=== PATIENT | male | born 1970 | race Caucasian/White ===

== ENCOUNTER 2020-10-14 12:06 | Emergency (ER) | payer OTHER, SELFPAY ==
--- NOTE | ~2020-10-14 | XR_ITS ---
XR knee LT min 4V 10/14/2020 12:39 Indication: Left knee pain Procedure: 4 views left knee Comparison: No prior studies for comparison. Findings: Mild osteoarthritis of the left knee. No fracture or traumatic malalignment. No significant joint effusion. No foreign body. Impression: 1: No acute bone or joint abnormality. Reviewed, dictated and finalized at location A. [employer]IC[employer] Impression: 1: No acute bone or joint abnormality.
[2020-10-14 12:16] VITALS: BP 164/93; PULSE 91; RESP 20; TEMP 37.3; O2SAT 97
--- NOTE | 2020-10-14 12:39 | ED.GENADULT ---
HPI - General Adult General Chief complaint: Extremity Injury, Lower Stated complaint: L knee pain Time Seen by Provider: 10/14/20 12:39 Source: patient Mode of arrival: ambulatory Limitations: no limitations History of Present Illness HPI narrative: 49-year-old male patient presents to the [facility] with complaints of left knee pain for several weeks and his increased in the last couple of days. Patient states it hurts with bending the knee and states he does feel some popping when extending the knee. Patient states he has had issues with the knee before and has had to have fluid removed from the knee. Patient denies any specific injury that he is aware of to the left knee. Patient states he has been taking some [id number] Advil for his symptoms. Related Data Allergies Allergy/AdvReac Type Severity Reaction Status Date / Time No Known Allergies Allergy Verified 10/14/20 12:12 Review of Systems Review of Systems: Narrative: CONSTITUTIONAL: Denies fever, chills, or sweats. EYES: Denies visual changes, redness, or discharge. ENT: Denies rhinorrhea, congestion, sore throat, or otalgia. CARDIOVASCULAR: Denies chest pain, palpitations, or edema. RESPIRATORY: Denies cough or dyspnea. GASTROINTESTINAL: Denies abdominal pain, nausea, vomiting, or diarrhea. GENITOURINARY: Denies dysuria or hematuria. SKIN: Denies rash or itching. MUSCULOSKELETAL: Denies back pain, joint pain, or myalgia. Positive left knee pain NEUROLOGIC: Denies headache, numbness, or weakness. PSYCHIATRIC: Denies anxiety or depression. [facility] Past Medical History Medical History Colon cancer screening Dizziness Prostate cancer screening Family History Family History Sibling Hypertension Family history of diabetes mellitus in first degree relative Father Asthma Mother Cerebrovascular accident Family history of diabetes mellitus in first degree relative Diabetes mellitus Hypertension Family history of throat cancer Social History Social History Smoking status: Never smoker Second hand tobacco smoke exposure: No Alcohol intake: never Comments At the time of my signature I agree with nursing past medical history, surgical, social, and family history. There is no relevant family history pertinent to the presenting complaint. Exam Narrative: Exam Narrative: GENERAL: Well-appearing, well-nourished, and in no acute distress. HEAD: Normocephalic, atraumatic. EYES: PERRLA and EOMI. ENT: Nares clear, no rhinorrhea or epistaxis. Mucous membranes moist. NECK: Supple. No lymphadenopathy CHEST: Clear to auscultation. No respiratory distress. HEART: Regular rate and rhythm. No murmur heard. Normal peripheral pulses. ABDOMEN: Soft, nontender, nondistended, normal active bowel sounds. EXTREMITIES: Patient is able to bear weight and ambulate but has increased pain to the left knee. No surface trauma, STS, or obvious effusion. No overlying erythema or warmth. The L knee is without obvious asymmetry or deformity when compared to the R knee. Patient is able to do deep knee bend with symmetry but has increase in pain with this motion, crepitus fel with fully extend knee,normal internal and external rotation. No tenderness to palpation of the patella, possible small effusion noted, no ballottement. tenderness over the infrapatellar tendon. No tenderness over the medial or lateral joint lone ot the medial or lateral tibial plateaus. tenderness over the proximal fibular head. no tenderness, fullness, or mass of the popliteal fossa. No quadriceps tenderness. No laxity of the ACL, PCL, MCL, or LCL. No collateral ligament laxity to valgus or vargus stress. Negative carmina/drawer sign. Negative Gely. Negative Apley compression and/or distraction. Distal motor and neurovascular status intact. SKIN:
== END 2020-10-14 12:58 | disposition home or self-care (01) ==
PROVIDERS: Emergency Provider Nurse Practitioner Family; PCP Family Medicine
DX: M17.12 Unilateral primary osteoarthritis, left knee (principal)
CPT/HCPCS: 73564; 99213; G0463

== ENCOUNTER → 2021-08-03 14:40 | Outpatient (CLI) | payer OTHER, SELFPAY ==
--- NOTE | ~2021-08-03 | XR_ITS ---
EXAMINATION: XR chest 2V 08/03/2021 15:03 INDICATION: Wheezing PROCEDURE: 2 view chest COMPARISON: No prior studies for comparison. FINDINGS: The lungs are clear. The cardiomediastinal silhouette is within normal limits. There are no pleural effusions. There is no pneumothorax suspected. IMPRESSION: 1: NO ACUTE CARDIOPULMONARY DISEASE. Reviewed, dictated and finalized at location A.
== END ==
PROVIDERS: PCP Family Medicine; Visit Provider Nurse Practitioner Family
DX: R06.2 Wheezing (principal)
CPT/HCPCS: 71046

== ENCOUNTER 2022-02-16 14:11 | Observation (INO) | payer OTHER, SELFPAY ==
[2022-02-16] VITALS (11 sets, daily range): BP systolic 120–177; BP diastolic 79–111; PULSE 72–98; RESP 13–22; TEMP 35.8–36.8; O2SAT 94–98; BMI 48.3
--- NOTE | ~2022-02-16 | XR_ITS ---
EXAMINATION: XR chest 2V Exam Date/Time: 02/16/2022 14:30 CDT CLINICAL HISTORY: cp Comparison: 08/03/2021. RESULT: Lines, tubes, and devices: None. Lungs and pleura: Clear. Cardiomediastinal silhouette: Stable cardiomediastinal silhouette. Other: No acute osseous or upper abdominal finding. IMPRESSION: No acute cardiopulmonary process. Reviewed, dictated and finalized at location K.
--- NOTE | 2022-02-16 14:12 | ECG_ITS ---
Measurements Intervals [place] Rate: 88 P: 10 AL: 166 QRS: -40 QRSD: 106 T: 42 QT: 375 QTc: 454 Interpretive Statements SINUS RHYTHM MARKED LEFT AXIS DEVIATION [QRS AXIS < -30] POOR R WAVE PROGRESSION NO PREVIOUS ECG AVAILABLE FOR COMPARISON Electronically Signed On 02-17-2022 6:54:31 CDT by Anca Hayes M.D.
[2022-02-16] MEDS: ASPIRIN 81 MG CHEWABLE TABLET 324 MG PO (14:31)
[2022-02-16] MEDS: NITROGLYCERIN SL 0.4 MG TABLET SUBLINGUAL (14:32)
--- NOTE | 2022-02-16 14:33 | ED.CHESTPAIN ---
HPI - Chest Pain General Chief Complaint: Chest Pain Stated Complaint: chest pains Time Seen by Provider: 02/16/22 14:13 Source: RN notes reviewed History of Present Illness HPI narrative: Patient presents emergency department from home for chest pain. Patient states that chest pain has been ongoing for the past 2 months but is worsened over the past several days this will be intermittent in nature but always seems to be mildly present pain is described as a pressure and does not radiate is associate with some shortness of breath denies any fevers or chills abdominal pain nausea vomiting or any other symptoms. States he has had no previous work-up for the pain states he does have a history of borderline hypertension but is not on any medication Related Data Home Medications Medication Instructions Recorded Confirmed tamsulosin 0.4 mg capsule 0.4 mg PO DAILY cap 08/03/21 08/10/21 Allergies Allergy/AdvReac Type Severity Reaction Status Date / Time No Known Allergies Allergy Verified 02/16/22 14:21 Review of Systems Review of Systems: Gen.: Denies fevers or chills ENT: Denies congestion Respiratory: Ports shortness of breath CV: See HPI GI: Denies abdominal pain nausea, emesis or diarrhea Musculoskeletal: Denies back pain or muscle pain Neuro: Denies numbness, tingling, weakness or focal weakness Skin: Denies rash Except as documented, all other systems reviewed and negative PMF Past Medical History Medical History BMI 40.0-44.9, adult BMI greater than 40 Colon cancer screening Dizziness Morbid (severe) obesity due to excess calories Prostate cancer screening Family History Family History Sibling Hypertension Family history of diabetes mellitus in first degree relative Father Asthma Mother Cerebrovascular accident Family history of diabetes mellitus in first degree relative Diabetes mellitus Hypertension Family history of throat cancer Sibling Hypertension Diabetes mellitus Social History Social History Second hand tobacco smoke exposure: Yes Alcohol intake: current Substance use: never Substance use type: does not use Additional occupation/education comments: sales management Gender identity (if verbalized by the patient): Male Exam Narrative: APPEARANCE: No acute distress, nontoxic, resting in bed EYES: EOMI HEENT: Normocephalic, atraumatic, OMM RESPIRATORY: No respiratory distress Clear to auscultation bilaterally with no rhonchi wheezing or rales. CARDIOVASCULAR: Regular rate and rhythm without murmurs rubs or gallops. ABDOMINAL: Soft, nontender, nondistended, no rebound or guarding MUSCULOSKELETAl: Moves all extremities. No clubbing, cyanosis or edema. NEURO: Awake and alert. Following commands, speech normal, no focal deficits SKIN:: Warm, dry. No rashes lesions or abrasions PSYCHIATRIC: Normal affect/mood, Course Course Emergency Course: Patient states pain is reviewed resolved with nitroglycerin Called and spoke with Dr. Hayes agrees with consult discussed with Discussed with BAKERY HELPER Crystal for Dr. Horton agrees with admission Discussed with patient and family results of workup and diagnosis. Discussed need for admission. Patient and family understand and agree to current treatment plan Vital Signs Vital signs: Vital Signs Temperature 98.2 F 02/16/22 14:15 Pulse Rate 94 02/16/22 14:15 Respiratory Rate 14 02/16/22 14:15 Blood Pressure 168/111 H 02/16/22 14:15 Pulse Oximetry 98 02/16/22 14:15 Temperature 98.2 F 02/16/22 14:15 Pulse Rate 95 02/16/22 14:48 Respiratory Rate 13 02/16/22 14:48 Blood Pressure 120/79 02/16/22 14:48 Pulse Oximetry 98 02/16/22 15:12 MDM - Chest Pain Lab Data Result diagrams: 02/16/22 14:27 02/16/22 14:27
[2022-02-16 14:34] LABS: Basophils Percent Auto 0.5 % (0.2-1.2); Eosinophils Absolute Auto 0.1 K/mm3 (0-0.3); Eosinophils Percent Auto 1.5 % (0-4.4); Hemoglobin 14.7 g/dL (14.0-18.0); Immature Granulocyte Absolute 0.02 K/mm3 (0.00-0.031); Immature Granulocyte Percent A 0.3 % (0-0.5); Lymphocytes Absolute Auto 2.01 K/mm3 (0.9-3.2); Lymphocytes Percent Auto 27.5 % (18.3-44.2); Mean Corpuscular HGB Conc 34.2 g/dl (32-36); Mean Corpuscular Hemoglobin 29.5 pg (26-34); Mean Corpuscular Volume 86.3 fl (80-100); Mean Platelet Volume 9.6 fl (7.4-10.4); Monocytes Absolute Auto 0.5 K/mm3 (0.1-0.6); Monocytes Percent Auto 6.4 % (2.6-8.5); Neutrophils Absolute Auto 4.7 K/mm3 (1.3-6.7); Neutrophils Percent Auto 63.8 % (45.5-73.1); Platelet Count Result 209 k/mm3 (150-375); Red Blood Count 4.98 M/mm3 (4.6-6.20); Red Cell Distribution Width 13.2 % (11.5-14.5); White Blood Count 7.3 K/mm3 (4.5-10.0)
--- NOTE | 2022-02-16 14:34 | PC.NURSE ---
Pt to XRAY via stretcher on tele monitor at this time.
[2022-02-16 14:44] LABS: INR 0.9; Prothrombin Time 12.1 Seconds (11.1-14.7)
[2022-02-16 14:46] LABS: Alanine Aminotransferase 20 U/L (4-50); Albumin Level 4.4 g/dL (3.5-5.1); Alkaline Phosphatase 73 U/L (38-126); Anion Gap 8 mmol/L (8-16); Aspartate Amino Transferase 26 U/L (17-59); Blood Urea Nitrogen 14 mg/dL (9-20); Calcium 8.8 mg/dL (8.4-10.2); Carbon Dioxide 26 mmol/L (22-30); Chloride 103 mmol/L (98-107); Estimated CRCL calculation 168 ml/min; Estimated Glomerular Filt Rate > 60; Glucose 142 mg/dL (65-110); Lipase 67 U/L (23-300); Sodium 137 mmol/L (137-145)
[2022-02-16 14:47] LABS: D Dimer 0.45 ug/mL (<0.48)
[2022-02-16 14:58] LABS: Troponin I < 0.012 ng/mL (0.000-0.034)
--- NOTE | 2022-02-16 16:16 | PM.IMHP ---
H&P: HPI History of Present Illness Date/Time: Patient was placed observation status for expected length of stay less than 23 hours for management, will plan to re-evaluate tomorrow for improvement. 02/16/22 16:16 Chief Complaint: Chest pain Narrative: Mr. Cabrera is a 51-year-old gentleman who presented to the emergency room with complaints of chest discomfort. Patient states that he has a history of diabetes mellitus and takes metformin for this diagnosis. Patient states that he does not check his blood glucose levels at home. Page states that over the last 2 months he has had chest discomfort ?in his heart muscle?. Patient states that over his left breast area he can pinpoint where he is having pain and that at times the pain will go back to his shoulder blade and at times down his left arm. Patient states at random times he will break out in a cold sweat and he cannot associate it with anything. Patient states the pain has been continuous and has eased up at times but never gone away. Patient states the pain feels like someone is pressing down on his chest. Patient denies any associated nausea, vomiting, or shortness of breath. Patient states that over the last few days the pressure has become very intense and that is what made him come to the emergency room. Upon evaluation in emergency room patient was given nitroglycerin and he states that it did ?Ease up? on the pain. Patient states at home he did not try to take anything to improve his chest discomfort. Patient states he had has taken [id number] Tylenol and ibuprofen at times and he did not notice a difference in his chest discomfort. Patient states that nothing makes the chest discomfort worse. As stated above patient does have a history of diabetes mellitus and is on metformin. Patient states he takes his medication without difficulty. Patient denies checking his blood glucose levels on a routine basis. Patient states he has been told he has borderline hypertension. Patient states he does not take anything at home for cholesterol. Patient states he does have a significant family history of coronary artery disease. Patient states his mother had a myocardial infarction with stent in her early 60s and then 2 years later she had a CVA. Review of Systems Review of Systems: A 12 point review of systems was completed patient all pertinent positive and negative per HPI the remainder are unremarkable. [facility] Past Medical History Medical History (Updated 02/16/22 @ 16:22 by Hanny Londono APRN) BMI 40.0-44.9, adult BMI greater than 40 Colon cancer screening Diabetes mellitus Dizziness Morbid (severe) obesity due to excess calories Prostate cancer screening Surgical History Surgical History (Updated 02/16/22 @ 16:20 by Hanny Londono APRN) History of cholecystectomy Family History Family History (Updated 02/16/22 @ 16:20 by Hanny Londono APRN) Sibling Hypertension Family history of diabetes mellitus in first degree relative Father Asthma Mother Cerebrovascular accident, Onset Age: 62 Family history of diabetes mellitus in first degree relative Diabetes mellitus Hypertension Family history of throat cancer Acute myocardial infarction, Onset Age: 60 Sibling Hypertension Diabetes mellitus Social History Social History Second hand tobacco smoke exposure: Yes Alcohol intake: current Substance use: never Substance use type: does not use Additional occupation/education comments: sales management Gender identity (if verbalized by the patient): Male Meds Home Medications and Allergies Home Medications Medication Instructions Recorded Confirmed Type testosterone cypionate 200 mg/mL 200 mg IM .every 2 weeks #10 ml 03/07/21 08/10/21 Rx intramuscular oil syringe with needle, safety 3 mL #50 ea 05/31/21 08/10/21 Rx 21 gauge x 1 1/2 albuterol sulfate 90 mc
--- NOTE | 2022-02-16 16:31 | ADMGEN ---
This patient, Derik Cabrera, was admitted to IMU Room 201-01. Patient/family oriented to hospital policies and general routines including ID bracelet, bed and alarms, visiting hours, pain management, procedures, bathroom and other care routines, personal items, smoking policy, room service/diet, and visiting hours. Information on how to activate the Rapid Response Team has been discussed. Patient/Family are encouraged to report perceived risks to care and to ask questions if they do not understand what they are told or what they should do.
[2022-02-16 17:02] LABS: Glucose Point of Care 127 mg/dl (65-105)
[2022-02-16 17:40] LABS: Troponin I < 0.012 ng/mL (0.000-0.034)
[2022-02-16 19:48] LABS: Glucose Point of Care 219 mg/dl (65-105)
[2022-02-16 20:35] LABS: Troponin I < 0.012 ng/mL (0.000-0.034)
[2022-02-16] MEDS: lisinopriL 10 MG TABLET PO (22:16)
[2022-02-17] VITALS (10 sets, daily range): BP systolic 109–154; BP diastolic 69–101; PULSE 68–93; RESP 15–22; TEMP 35.7–36.4; O2SAT 95–98
[2022-02-17 04:47] LABS: Basophils Percent Auto 0.3 % (0.2-1.2); Eosinophils Absolute Auto 0.1 K/mm3 (0-0.3); Eosinophils Percent Auto 1.7 % (0-4.4); Hematocrit 43.9 % (42.0-52.0); Hemoglobin 14.1 g/dL (14.0-18.0); Immature Granulocyte Absolute 0.02 K/mm3 (0.00-0.031); Immature Granulocyte Percent A 0.3 % (0-0.5); Lymphocytes Absolute Auto 1.72 K/mm3 (0.9-3.2); Lymphocytes Percent Auto 29.5 % (18.3-44.2); Mean Corpuscular HGB Conc 32.1 g/dl (32-36); Mean Corpuscular Volume 90.1 fl (80-100); Mean Platelet Volume 9.8 fl (7.4-10.4); Monocytes Absolute Auto 0.4 K/mm3 (0.1-0.6); Monocytes Percent Auto 7.4 % (2.6-8.5); Neutrophils Absolute Auto 3.6 K/mm3 (1.3-6.7); Neutrophils Percent Auto 60.8 % (45.5-73.1); Platelet Count Result 190 k/mm3 (150-375); Red Blood Count 4.87 M/mm3 (4.6-6.20); Red Cell Distribution Width 13.4 % (11.5-14.5); White Blood Count 5.8 K/mm3 (4.5-10.0)
[2022-02-17 04:59] LABS: Hemoglobin A1C 6.5 % (<5.7)
[2022-02-17 05:00] LABS: Alanine Aminotransferase 17 U/L (4-50); Albumin Level 3.8 g/dL (3.5-5.1); Alkaline Phosphatase 63 U/L (38-126); Anion Gap 7 mmol/L (8-16); Aspartate Amino Transferase 20 U/L (17-59); Bilirubin,Total 1.1 mg/dL (0.2-1.3); Blood Urea Nitrogen 14 mg/dL (9-20); Calcium 8.3 mg/dL (8.4-10.2); Carbon Dioxide 28 mmol/L (22-30); Chloride 102 mmol/L (98-107); Cholesterol 225 mg/dL (0-200); Estimated CRCL calculation 172 ml/min; Estimated Glomerular Filt Rate > 60; Glucose 128 mg/dL (65-110); HDL Direct 30 mg/dL; Potassium 3.8 mmol/L (3.4-5.0); Sodium 137 mmol/L (137-145); Triglycerides 104 mg/dL (<150)
[2022-02-17 05:11] LABS: LDL Cholesterol Direct 146 mg/dL
[2022-02-17 07:48] LABS: Glucose Point of Care 129 mg/dl (65-105)
[2022-02-17] MEDS: lisinopriL 10 MG TABLET PO (08:05)
[2022-02-17] MEDS: ASPIRIN 81 MG ENTERIC TABLET PO (08:05)
[2022-02-17 11:42] LABS: Glucose Point of Care 153 mg/dl (65-105)
--- NOTE | 2022-02-17 12:37 | PM.DS ---
DS: Admitting Diagnosis Discharge Date February 17, 2022 Admitting Diagnosis Chest pain DS: Discharge Diagnosis Discharge Diagnosis (1) Chest pain: Code(s): R07.9 - Chest pain, unspecified Status: Acute Assessment and Plan: Follow-up Cardiology outpatient (2) Diabetes mellitus: Code(s): E11.9 - Type 2 diabetes mellitus without complications Status: Acute Assessment and Plan: Resume home meds, follow up primary care physician (3) Elevated BP without diagnosis of hypertension: Code(s): R03.0 - Elevated blood-pressure reading, without diagnosis of hypertension Status: Acute Assessment and Plan: Lisinopril on discharge DS: Summary Hospital Course Hospital Course: C plan diagnosis Time Spent with Patient Time attestation: Total time spent providing and/or coordinating discharge services: Exam Narrative: Constitutional: Patient is well-nourished in no acute distress. Patient is alert and oriented x3 HEENT: Moist mucous membranes. No scleral icterus. No lymphadenopathy. Neck: No carotid bruits noted no JVD noted Lungs: Lung sounds are clear to auscultation bilaterally. No accessory muscle use. No rhonchi, rales, or wheezes noted. Cardiovascular: Apical pulse is regular rate and rhythm. S1-S2 noted, no S3 or S4 noted. No gallops, murmurs, or rubs noted. Abdomen: Soft, round, and nontender. No palpable masses. Extremities: No edema. Nontender. Skin: No rashes or lesions. Warm and dry. Skin is intact. Neurological: No focal neurological deficits. Cranial nerves II-XII grossly intact. Psychiatric: Cooperative, appropriate mood, and affect DS: Data Data Completed and Pending Labs on day of discharge: Labs from last 24 hours 02/17/22 02/17/22 02/17/22 11:34 07:29 04:15 WBC RBC Hgb Hct MCV MCH MCHC RDW Plt Count MPV Immature Gran % (Auto) Neut % (Auto) Lymph % (Auto) [place] % (Auto) Eos % (Auto) Baso % (Auto) Lymph # (Auto) [place] # (Auto) Eos # (Auto) Baso # (Auto) Abs Immat Gran (auto) Absolute Neuts (auto) Absolute Nucleated RBC Nucleated RBC % PT INR APTT D-Dimer Sodium Potassium Chloride Carbon Dioxide Anion Gap BUN Creatinine Estim Creat Clear Calc Estimated GFR Glucose POC Capillary Glucose 153 H 129 H Hemoglobin A1c 6.5 H Calcium Total Bilirubin AST ALT Alkaline Phosphatase Troponin I Total Protein Albumin Triglycerides Cholesterol LDL Cholesterol Direct HDL Direct Lipase 02/17/22 02/17/22 02/16/22 04:15 04:15 20:08 WBC 5.8 RBC 4.87 Hgb 14.1 Hct 43.9 MCV 90.1 MCH 29.0 MCHC 32.1 RDW 13.4 Plt Count 190 MPV 9.8 Immature Gran % (Auto) 0.3 Neut % (Auto) 60.8 Lymph % (Auto) 29.5 [place] % (Auto) 7.4 Eos % (Auto) 1.7 Baso % (Auto) 0.3 Lymph # (Auto) 1.72 [place] # (Auto) 0.4 Eos # (Auto) 0.1 Baso # (Auto) 0.0 Abs Immat Gran (auto) 0.02 Absolute Neuts (auto) 3.6 Absolute Nucleated RBC 0.0 Nucleated RBC % 0.0 PT INR APTT D-Dimer Sodium 137 Potassium 3.8 Chloride 102 Carbon Dioxide 28 Anion Gap 7 L BUN 14 Creatinine 0.70 Estim Creat Clear Calc 172 Estimated GFR > 60 Glucose 128 H POC Capillary Glucose Hemoglobin A1c Calcium 8.3 L Total Bilirubin 1.1 AST 20 ALT 17 Alkaline Phosphatase 63 Troponin I < 0.012 Total Protein 7.0 Albumin 3.8 Triglycerides 104 Cholesterol 225 H LDL Cholesterol Direct 146 HDL Direct 30 Lipase 02/16/22 02/16/22 02/16/22 19:38 17:14 16:59 WBC RBC Hgb Hct MCV MCH MCHC RDW Plt Count MPV Immature Gran % (Auto) Neut % (Auto) Lymph % (Auto) [place] % (Auto) Eos % (Auto) Baso % (Auto) Lymph # (Auto)
--- NOTE | 2022-02-17 12:51 | PM.CNCAR ---
Assessment and Plan Additional Plan Atypical chest pain, EKG with no specific ST-T wave changes, Negative enzymes, Plan stress test in AM, ASA, stain and metoprolol 25 mg BID. Patient has social situation and has to leave for family issues and decided to do stress test as outpatient. Patient understands risk and need to come back for recurrent pain. History of Present Illness History of Present Illness Consult date/time: 02/17/22 12:51 Consult reason: chest pain Reason For Visit: Chest Pain Narrative: Patient presented with episode of chest pain yesterday, discomfort, pressure like, non radiating, no precipitating or relieving factors. He had episodes of discomfort for several times for last week. He is under mental stress and anxiety recently. Review of Systems Review of Systems: All systems reviewed & are unremarkable except as noted in HPI and below PMFSH Past Medical History Medical History (Updated 02/16/22 @ 16:22 by Hanny Londono APRN) BMI 40.0-44.9, adult BMI greater than 40 Colon cancer screening Diabetes mellitus Dizziness Morbid (severe) obesity due to excess calories Prostate cancer screening Surgical History Surgical History (Updated 02/16/22 @ 16:20 by Hanny Londono APRN) History of cholecystectomy Family History Family History Sibling Hypertension Family history of diabetes mellitus in first degree relative Father Asthma Mother Cerebrovascular accident, Onset Age: 62 Family history of diabetes mellitus in first degree relative Diabetes mellitus Hypertension Family history of throat cancer Acute myocardial infarction, Onset Age: 60 Sibling Hypertension Diabetes mellitus Social History Social History Smoking status: Never smoker Second hand tobacco smoke exposure: Yes Alcohol intake: never Substance use: never Substance use type: does not use Additional occupation/education comments: sales management Gender identity (if verbalized by the patient): Male Spiritual care concerns: No Meds Home Medications and Allergies Home Medications Medication Instructions Recorded Confirmed Type syringe with needle, safety 3 mL #50 ea 05/31/21 02/16/22 Rx 21 gauge x 1 1/2 tamsulosin 0.4 mg capsule 0.4 mg PO DAILY cap 08/03/21 02/16/22 History pantoprazole 40 mg tablet,delayed 40 mg PO QAM #90 tablet 01/11/22 02/16/22 Rx release metformin 500 mg PO BID 02/16/22 02/16/22 History aspirin 81 mg PO QAM #30 tablet 02/17/22 Rx lisinopril 10 mg PO DAILY 30 Days #30 tablet 02/17/22 Rx metoprolol tartrate 25 mg PO Q12HR 30 Days #60 tablet 02/17/22 Rx Allergies Allergy/AdvReac Type Severity Reaction Status Date / Time No Known Allergies Allergy Verified 02/16/22 14:21 Vital Signs Vital Signs - 24 hr 02/16/22 14:15 02/16/22 14:19 02/16/22 14:48 Temperature 36.8 C Pulse Rate 94 93 95 Respiratory Rate 14 13 Blood Pressure 168/111 H 120/79 Pulse Oximetry 98 96 02/16/22 15:12 02/16/22 16:01 02/16/22 16:47 Temperature 35.8 C L Pulse Rate 88 85 Respiratory Rate 18 22 H Blood Pressure 157/97 H 166/98 H Pulse Oximetry 98 97 98 02/16/22 18:00 02/16/22 19:35 02/16/22 20:00 Temperature 36.3 C L Pulse Rate 96 98 98 Respiratory Rate 16 Blood Pressure 177/104 H Pulse Oximetry 94 94 02/16/22 22:00 02/16/22 23:44 02/17/22 00:00 Temperature 36.2 C L Pulse Rate 79 72 73 Respiratory Rate 16 Blood Pressure 149/79 H Pulse Oximetry 95 95 02/17/22 02:00 02/17/22 04:00 02/17/22 06:00 Temperature 36.4 C Pulse Rate 73 73 68 Respiratory Rate 15 Blood Pressure 109/77 Pulse Oximetry 95 02/17/22 07:47 02/17/22 08:00 02/17/22 10:00 Temperature 35.7 C L Pulse Rate 71 72 91 Respiratory Rate 20 Blood Pressure 119/69 Pulse Oximetry 96 98 02/17/22 11:43 02/17/22 12:00 04
== END 2022-02-17 13:00 | disposition home or self-care (01) ==
LOC: ANHED 15:34 → ANHIMU 16:51
PROVIDERS: Nurse Practitioner Adult Health; Admitting Provider Hospitalist; Emergency Provider Emergency Medicine; PCP Family Medicine; Visit Provider Chiropractor
DX: R07.9 Chest pain, unspecified (principal); R06.02 Shortness of breath; R03.0 Elevated blood-pressure reading, without diagnosis of hypertension; E11.9 Type 2 diabetes mellitus without complications; E66.01 Morbid (severe) obesity due to excess calories; Z68.42 Body mass index [BMI] 45.0-49.9, adult; Z79.51 Long term (current) use of inhaled steroids; Z79.84 Long term (current) use of oral hypoglycemic drugs
CPT/HCPCS: 36415; 71046; 80053; 80061; 82948; 83036; 83690; 84484; 85025; 85380; 85610; 85730; 93005; 99285; A9270; G0378

== ENCOUNTER 2022-07-22 20:44 | Emergency (ER) | payer OTHER, SELFPAY ==
--- NOTE | ~2022-07-22 | XR_ITS ---
EXAM: XR hip LT min 2V DATE: 07/22/2022 22:05 HISTORY: pain radiating down Lt leg, onset last P.M., no injury . COMPARISON: None available. FINDINGS: Normal mineralization. No fracture or dislocation. No lytic or blastic lesion. Mild left h ip superior joint space narrowing. Mild trochanteric and pelvic enthesopathy. No erosion or periostea l change. Soft tissues within normal limits. IMPRESSION: No acute osseous finding the left hip. Reviewed, dictated and finalized at location K.
--- NOTE | ~2022-07-22 | CT_ITS ---
EXAMINATION: CT pelvis wo con DATE: 07/23/2022 01:34 INDICATION: Left hip pain. Unable to bear weight. TECHNIQUE: High resolution computed tomography (CT) of the pelvis was performed without intravenous c ontrast. Additional sagittal and coronal reconstructions were performed. Automated exposure control a nd iterative reconstruction technique were employed. The dose-length product was 967.96 mGy-cm. COMPARISON: Left hip radiographs dated 07/22/2022 FINDINGS: Bone alignment is normal. No fracture or suspected avascular necrosis. Mild bilateral hip osteoarthri tis with marginal osteophytes along the bilateral acetabular rims. No hip joint effusions or other ab normal fluid collections. Additional mild osteoarthritis at the bilateral sacroiliac joints. Small bi lateral fat-containing inguinal hernias. Visualized bowels including the appendix are normal. Bladder is normal. No free fluid in the pelvis. No pathologically enlarged pelvic or inguinal lymphadenopath y. IMPRESSION: 1. Mild bilateral hip and sacroiliac osteoarthritis. No acute osseous abnormalities. Reviewed, dictated and finalized at location A. IMPRESSION: 1. Mild bilateral hip and sacroiliac osteoarthritis. No acute osseous abnormali ties.
[2022-07-22 21:01] VITALS: BP 132/98; PULSE 78; RESP 16; TEMP 36.2; O2SAT 97
[2022-07-23] MEDS: ACETAMINOPHEN 500 MG TABLET 1000 MG PO (01:07)
[2022-07-23] MEDS: IBUPROFEN 400 MG TABLET 800 MG PO (01:08)
--- NOTE | 2022-07-23 02:06 | ED.GENADULT ---
HPI - General Adult General Chief complaint: Extremity Problem,Nontraumatic Stated complaint: Left hip pain Time Seen by Provider: 07/23/22 00:52 History of Present Illness HPI narrative: This is a 51-year-old male presenting to ED with left hip pain. Patient says he was watching TV last night when he started develop pain in the left lateral hip. It radiates down the outside of his leg. It is constant. He has never experienced pain like this before. It is worse with movement. There are no alleviating factors. He denies any fever, chills, trauma, overlying skin changes, lower extremity edema or history of blood clots. Patient has erythematous rash over his thighs bilaterally. It is tender for several weeks. It is itchy. He has seen a motor checker for management. Related Data Home Medications Medication Instructions Recorded Confirmed tadalafil 20 mg tablet (Cialis) 20 mg PO DAILY PRN 05/27/22 05/27/22 tamsulosin 0.4 mg capsule See Rx Instructions .Route .COMPLEX 05/27/22 05/27/22 Allergies Allergy/AdvReac Type Severity Reaction Status Date / Time No Known Allergies Allergy Verified 07/22/22 23:42 Review of Systems Review of Systems: CONSTITUTIONAL: Denies night sweats. EYES: No eye pain ENT: Denies rhinorrhea CARDIOVASCULAR: Denies palpitations RESPIRATORY: Denies hemoptysis GASTROINTESTINAL: Denies hematemesis GENITOURINARY: Denies hematuria. SKIN: Denies rash MUSCULOSKELETAL: Denies myalgia. NEUROLOGIC: Denies weakness. PSYCHIATRIC: Denies delusions [facility] Past Medical History Medical History BMI 40.0-44.9, adult BMI greater than 40 Colon cancer screening Diabetes mellitus Dizziness Eczema Essential hypertension Health problem in family Morbid (severe) obesity due to excess calories Prostate cancer screening Tinea cruris Surgical History Surgical History History of cholecystectomy Family History Family History Sibling Hypertension Family history of diabetes mellitus in first degree relative Father Asthma Mother Cerebrovascular accident, Onset Age: 62 Family history of diabetes mellitus in first degree relative Diabetes mellitus Hypertension Family history of throat cancer Acute myocardial infarction, Onset Age: 60 Sibling Hypertension Diabetes mellitus Social History Social History Smoking status: Never smoker Second hand tobacco smoke exposure: Yes Alcohol intake: current Substance use: never Substance use type: does not use Additional occupation/education comments: sales management Gender identity (if verbalized by the patient): Male Spiritual care concerns: No Exam Narrative: APPEARANCE: No apparent distress. Head atraumatic. EYES: PERRLA/EOMI, NOSE: Normal no drainage NECK: Supple, Trachea midline RESPIRATORY: CTAB, No increased work of breathing. CARDIOVASCULAR: S1S2 appreciated ABDOMINAL: Soft, nontender, nondistended, MUSCULOSKELETAl: focal exam of the left lower extremity revealed pain on ranging of the left hip. There is no pain in the knee or the ankle. There is no ecchymosis or swelling over the hip joint. The joint is not warm to the touch.There is a itchy rash over the patient's anterior thighs as described below. Patient is able to stand and bear weight but has pain with movement. There is no tenderness to palpation down the NEURO: Alert. Moving 4/4 extremities SKIN:: Patient has an erythematous rash over the anterior thighs bilaterally. Does not follow dermatomal distribution. It is not warm to the touch. PSYCHIATRIC: Normal affect Course Vital Signs Vital signs: Vital Signs Temperature 97.2 F L 07/22/22 21:01 Pulse Rate 78 07/22/22 21:01 Respiratory Rate 16 07/22/22 21:01 Blood Pressure
[2022-07-23] MEDS: methocarbamoL 750 MG TABLET 1500 MG PO (02:40)
[2022-07-23] MEDS: oxyCODONE HCL (*CRX) 5 MG TAB IR PO (02:40)
--- NOTE | 2022-07-23 03:10 | PC.NURSE ---
Report received from WISAM Onofre. Awaiting disposition.
== END 2022-07-23 03:52 | disposition home or self-care (01) ==
PROVIDERS: Emergency Provider Emergency Medicine; PCP Family Medicine
DX: M25.552 Pain in left hip (principal); B35.4 Tinea corporis; E11.9 Type 2 diabetes mellitus without complications; I10 Essential (primary) hypertension
CPT/HCPCS: 72192; 73502; 99284; A9270

== ENCOUNTER 2023-09-16 08:07 | Outpatient (CLI) | payer OTHER, SELFPAY ==
[2023-09-16 09:07] LABS: Basophils Percent Auto 0.6 % (0.2-1.2); Eosinophils Absolute Auto 0.1 K/mm3 (0-0.3); Eosinophils Percent Auto 1.2 % (0-4.4); Hematocrit 45.3 % (42.0-52.0); Hemoglobin 14.9 g/dL (14.0-18.0); Immature Granulocyte Absolute 0.02 K/mm3 (0.00-0.031); Immature Granulocyte Percent A 0.4 % (0-0.5); Lymphocytes Absolute Auto 1.62 K/mm3 (0.9-3.2); Lymphocytes Percent Auto 32.5 % (18.3-44.2); Mean Corpuscular HGB Conc 32.9 g/dl (32-36); Mean Corpuscular Hemoglobin 30.2 pg (26-34); Mean Corpuscular Volume 91.7 fl (80-100); Mean Platelet Volume 9.5 fl (7.4-10.4); Monocytes Absolute Auto 0.4 K/mm3 (0.1-0.6); Monocytes Percent Auto 7.6 % (2.6-8.5); Neutrophils Absolute Auto 2.9 K/mm3 (1.3-6.7); Neutrophils Percent Auto 57.7 % (45.5-73.1); Platelet Count Result 181 k/mm3 (150-375); Red Blood Count 4.94 M/mm3 (4.6-6.20)
[2023-09-16 10:15] LABS: Alanine Aminotransferase 22 U/L (6-50); Albumin Level 4.4 g/dL (3.5-5.1); Alkaline Phosphatase 62 U/L (38-126); Anion Gap 7 mmol/L (8-16); Aspartate Amino Transferase 25 U/L (17-59); Bilirubin,Total 1.1 mg/dL (0.2-1.3); Blood Urea Nitrogen 14 mg/dL (9-20); Calcium 9.1 mg/dL (8.4-10.2); Carbon Dioxide 28 mmol/L (22-30); Chloride 103 mmol/L (98-107); Cholesterol 161 mg/dL (0-200); Estimated Glomerular Filt Rate > 60; Glucose 111 mg/dL (65-110); HDL Direct 35 mg/dL; Potassium 4.2 mmol/L (3.4-5.0); Sodium 138 mmol/L (137-145); Triglycerides 156 mg/dL (<150)
[2023-09-16 10:26] LABS: LDL Cholesterol Direct 90 mg/dL
[2023-09-16 10:46] LABS: Prostate Specific Antigen 0.2 ng/mL (< OR = 4.0)
[2023-09-16 11:13] LABS: Hemoglobin A1C 6.1 % (<5.7)
[2023-09-16 12:55] LABS: Creatinine Urine 89.1 mg/dL
[2023-09-16 13:06] LABS: MALB Creatinine Ratio < 6.7 mg/g (0-30); Microalbumin Urine Random < 6.0 mg/L (0-16.7)
== END 2023-09-16 08:08 | disposition home or self-care (01) ==
PROVIDERS: PCP Family Medicine; Visit Provider Family Medicine
DX: Z12.5 Encounter for screening for malignant neoplasm of prostate (principal); I10 Essential (primary) hypertension; E11.9 Type 2 diabetes mellitus without complications; R21 Rash and other nonspecific skin eruption; Z13.220 Encounter for screening for lipoid disorders
CPT/HCPCS: 36415; 80048; 80061; 80076; 82043; 83036; 84153; 84443; 85025; 86038; G0103

== ENCOUNTER 2025-02-01 09:18 | Outpatient (CLI) | payer OTHER, SELFPAY ==
--- NOTE | ~2025-02-01 | XR_ITS ---
EXAMINATION: XR barium swallow modified DATE: 02/01/2025 09:48 INDICATION: Other dysphagia. TECHNIQUE: The patient was given barium-containing material of multiple consistencies to swallow by t jesse speech pathologist while I performed fluoroscopy. Fluoroscopy exposure time was 0.9 minutes. The n umber of fluoroscopy images saved to the PACS was 1. Dose-area product was 1.036 Gy-cm^2. FINDINGS: The oral stage of the swallow is normal. There is flash laryngeal penetration, likely within function al/normal limits. The cervical/esophageal stage of the swallow is normal. IMPRESSION: 1. Normal modified barium swallow. 2. Please refer to the speech therapy report for recommendations. Reviewed, dictated and finalized at location A.
--- NOTE | 2025-02-01 10:13 | REHSTMBS ---
Assessment and note entered by Suyapa Arce, FISH HATCHERY SPECIALIST Modified Barium Swallow Evaluation Feeding Type Recommended Oral Food Consistency Regular, Level 7 Liquid Consistency Thin (0) ST Clinical Summary The above pleasant and cooperative pt was seen for an outpatient modified barium swallow. He was alert, oriented, and able to follow commands. He is currently on a regular diet and reports difficulty in that he occasionally feels that food and, now recently, liquids are getting caught in his esophagus. He also occasionally feels pain which occasionally causes coughing; he had 1 episode where he almost couldn't breathe. Oral mucosa is normal; natural dentition is in good condition; Informal oral peripheral exam revealed lingual and labial structures to be normal. Vocal quality is clear. The patient was visualized in a lateral view and presented with 5cc of thin liquid barium via spoon , pudding consistency barium via a spoon, cracker coated with barium pudding via spoon, and uncontrolled thin liquid barium. This was presented via a cup & straw. Oral preparatory and oral phase symptoms: none. Pharyngeal phase symptoms: within functional limits; trace and very shallow laryngeal penetration occurred but was easily and readily cleared with no aspiration risk . Esophageal stage symptoms: none. No aspiration occurred. Impressions: Normal/functional swallow ability; however, it may be that pt's s/s are a side effect of his Mounjaro medication as it may cause indigestion, upset stomach, & dry mouth.
--- OUTSIDE RECORDS SUMMARY | 2025-02-01 10:19 | XMS_ITS | Clinical Summary ---
Author Organization [facility] Address [address] [place] [address] Care Team Providers Care Shipping Processor Name Role Phone Catracho Palma MD Primary Care Provider + [phone] Allergies No known active allergies Medications pantoprazole DR (PROTONIX) 40 mg EC tablet Take 1 tablet (40 mg total) by mouth 2 (two) times a day. 180 tablet 3 11/26/19 19 Active tamsulosin (FLOMAX) 0.4 mg extended release capsuleIndication s:benign prostatic hyperplasia with lower urinary tract sx Take 1 capsule (0.4 mg total) by mouth pot fisher before breakfast 05/15/20 20 Active lisinopriL (PRINIVIL,ZESTRIL ) 10 mg tablet Take 1 tablet (10 mg total) by mouth daily 03/03/20 22 Active metFORMIN XR (GLUCOPHAGE XR) 500 mg 24 hr tablet Take 1 tablet (500 mg total) by mouth daily 02/27/20 22 Active metoprolol tartrate (LOPRESSOR) 25 mg immediate release tablet Take 1 tablet (25 mg total) by mouth 2 (two) times a day 03/03/20 22 Active isosorbide mononitrate ER (IMDUR) 30 mg 24 hr tabletIndications :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 Take 1 tablet (30 mg total) by mouth daily 90 tablet 3 04/01/20 24 Active rosuvastatin (CRESTOR) 40 mg tabletIndications :Dyslipidemia Take 1 tablet by mouth once daily 90 tablet 1 08/12/20 24 Active clopidogreL (PLAVIX) 75 mg tablet Take 1 tablet by mouth once daily 90 tablet 11/08/20 24 Active Jardiance 10 mg tablet Take 1 tablet by mouth once daily 90 tablet 11/26/19 25 Active Mounjaro 12.5 mg/0.5 mL pen injector injection Inject 0.5 mL (12.5 mg total) under the skin 12/27/19 25 Active ondansetron ODT (ZOFRAN-ODT) 4 mg disintegrating tabletIndications :Nausea Take 1 tablet (4 mg total) by mouth every 8 (eight) hours as needed for nausea or vomiting 10 tablet 12/30/19 25 Active bempedoic acid-ezetimibe 180-10 mg tablet Take 1 tablet/capsu le by mouth daily 30 tablet 11 01/05/20 25 Active ranolazine ER (RANEXA) 1,000 mg 12 hr tabletIndications :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 TAKE ONE TABLET BY MOUTH TWICE A DAY 60 tablet 11 01/18/20 25 Active ranolazine ER (RANEXA) 1,000 mg 12 hr tabletIndications :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 Take 1 tablet (1,000 mg total) by mouth 2 (two) times a day 180 tablet 12/22/19 24 025 Discontinued Active Problems Problem Noted Date Diagnosed Date History of percutaneous coronary intervention Overview (06/12/2022): Added automatically from request for surgery [id number] Coronary artery disease of n ative artery of prairie band heart with stable angina pectoris 06/12/2022 Overview (06/12/2022): Added automatically from request for surgery [id number] Abnormal stress test 03/11/2022 Overview (03/11/2022): Added automatically from request for surgery [id number] Chest pain 03/11/2022 Overview (03/11/2022): Added automatically from request for surgery [id number] Mixed sleep apnea 10/24/2021 Refractive error 07/11/2020 Routine eye exam 07/11/2020 Snoring 03/09/2019 Abscess of right leg 03/26/2018 Cellulitis of right lower extremity 03/26/2018 GERD (gastroesophageal reflux disease) 8 Schatzki's ring 03/26/2018 Obesity due to excess calories 03/26/2018 Lentigines 03/17/2018 Multiple benign melanocytic nevi 03/17/2018 Actinic keratosis 03/17/2018 Seborrheic keratoses 03/17/2018 Skin neoplasm 03/17/2018 Dysphagia 03/05/2018 Excessive daytime sleepiness 02/05/2017 Primary osteoarthritis of knees, bilateral 12/23 Morbid obesity due to excess calories 11/27/2016 Overview (05/28/2023): see above Cellulitis and abscess of right leg Resolved Problems Problem Noted Date Diagnosed Date Resolved Date BMI 40.0-44.9, adult 11/27/2016 024 Overview (05/28/2023): slight improvement Encounters Date Type Department Care Team Description 01/26/2025 Telephone [facility] G[facility]ology at [facility] [address], [place] [phone] Daquan Figueroa MD Scheduling Appointments 01/21/2025 Telephone [facility] G[facility]ology at [facility] [address], [place] [address] Daquan Figueroa MD office visit 01/10/2025 Documentation [facility] Medical [facility] Cardiology [address] [place] [phone] Corine Newton MA 01/05/2025 8:30 AM GRAPHITE MILL OPERATOR Office Visit [facility] Cardiology [address] [place] [phone] Nahum Haider MD 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) 12/30/2024 12:00 PM GRAPHITE MILL OPERATOR Office Visit [facility] at [address] [phone] Mary Kay Desai NP Diarrhea, unspecified type (Primary Dx); Nausea from Last 3 Months Surgical History Surgery Date Site/Laterality Comments CHOLECYSTECTOMY 11/10/2011 - 11/09/2012 INCISION AND DRAINAGE TIBIA 11/10/2017 - 11/09/2018 COLONOSCOPY 2020 Medical History Medical History Date Comments GERD (gastroesophageal reflux disease) Sleep apnea Hypertension Diabetes mellitus (HCC) Hypercholesteremia Type 2 diabetes mellitus (HCC) Morbid obesity (HCC) Coronary artery disease Family History Medical History Relation Name Comments Diabetes Brother Sister Gout Brother Sister Hypertension Brother Sister Arthritis Father Ignacio Diabetes Father Ignacio Hypertension Father Ignacio Arthritis Mother Mother Cancer Mother Mother Clotting disorder Mother Mother Diabetes Mother Mother Heart disease Mother Mother Hypertension Mother Mother Kyphosis Mother Mother Stroke Mother Mother Diabetes Sister Hypertension Sister Relation Name Status Comments Brother Sister Father Ignacio Mother Mother Sister Social History Tobacco Use Types Packs/Day Years Used Date Smoking Tobacco: Never Smokeless Tobacco: Never Tobacco Cessation:Counseling Given: Not Answered Alcohol Use Standard Drinks/Week Comments Yes 2 (1 standard drink = 0.6 oz pur e alcohol) socially AUDIT-C Answer Date Recorded Q1: How often do you have a drink containing alc ohol? 2-3 times a week 03/11/2024 Q2: How many drinks containi ng alcohol do you have on a typical day when you are drinking? 1 or 2 03/11/2024 Q3: How often do you have si x or more drinks on one occasion? Never 03/11/2024 Personal Safety Answer Date Recorded Have you ever been in or are you currently in a harmful physical or emotional relationship or is someone making you feel afraid or unsafe? Denies 04/25/2023 Sex and Gender Information Value Date Recorded Sex Assigned at Not on file Legal Sex Male 12:26 PM CDT Gender Identity Not on file Sexual Orientation Not on file Obstetrics History Last Filed Vital Signs Vital Sign Reading Time Taken Comments Blood Pressure 106/64 01/05/2025 8:29 AM GRAPHITE MILL OPERATOR Pulse 80 01/05/2025 8:29 AM GRAPHITE MILL OPERATOR Temperature 36.7 C (98.1 F) 12/30/2024 12:09 PM GRAPHITE MILL OPERATOR Respiratory Rate 18 12/30/2024 12:09 PM GRAPHITE MILL OPERATOR Oxygen Saturation 98% 01/05/2025 8:29 AM GRAPHITE MILL OPERATOR Inhaled Oxygen Concentration - - Weight 136.1 kg (300 lb) 01/05/2025 8:29 AM GRAPHITE MILL OPERATOR Height 185.4 cm (6' 1 ) 01/05/2025 8:29 AM GRAPHITE MILL OPERATOR Body Mass Index 39.58 01/05/2025 8:29 AM GRAPHITE MILL OPERATOR Plan of Treatment Health Maintenance Due Date Last Done Comments Albumin Creatinine Ratio, Urine 1970 Depression Screening 1970 Hepatitis C Screening 1970 Dilated Eye Exam 1970 Foot Exam 1969 DTaP/Tdap/Td Vaccine (1 - Tdap) 1980 Hepatitis B Screening 1987 Regular Well Visit/Exam 18-64 1987 Pneumococcal vaccine <65 (1 of 2 - PCV) 1988 Zoster Vaccine (1 of 2) 2019 Prostate Cancer Screening-PSA 03/10/2022 03/10/2020 Covid-19 Vaccine (3 - 2023-2 5 season) 2024 01/28/2021, 01/07/2021 Influenza Vaccine (#1) 2024 08/25/2020, 2018 Hemoglobin A1C 10/26/2024 04/26/2024 eGFR 04/26/2025 04/26/2024, 07/12, 04/01/2022, Additional history exists Lipid Panel 01/05/2026 01/05/2025, 04/10, 12/31/2023, Additional history exists Colon Cancer Screening-Colonoscopy 07/07/2030 07/07/2020 Colon Cancer Screening-CT Colonography Discontinued 07/07/2020 Colon Cancer Screening-DNA Stool Discontinued 07/07/20 Colon Cancer Screening-FIT Discontinued 07/07/2020 Colon Cancer Screening-Sigmoidoscopy Discontinued 07/07/2020 Procedures Procedure Name Priority Date/Time Associated Diagnosis Comments POCT LIPID PANEL Routine 01/05/2025 8:24 AM GRAPHITE MILL OPERATOR 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 POC INFLUENZA A/B, COVID-19 ANTIGEN Routine 12/30/2024 12:41 PM GRAPHITE MILL OPERATOR Diarrhea, unspecified type EGFR Routine 04/26/2024 2:34 PM CDT Morbid obesity with BMI of 45.0-49.9, adult (HCC) 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 Gastroesophageal reflux disease, unspecified whether esophagitis present Primary hypertension Obstructive sleep apnea Hyperlipidemia, unspecified hyperlipidemia type HEMOGLOBIN A1C Routine 04/26/2024 2:34 PM CDT Morbid obesity with BMI of 45.0-49.9, adult (HCC) 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 Gastroesophageal reflux disease, unspecified whether esophagitis present Primary hypertension Obstructive sleep apnea Hyperlipidemia, unspecified hyperlipidemia type COLONOSCOPY 07/07/2020 10:10 AM CDT PSA SCREEN Routine 03/10/2020 7:59 AM CDT from Last 3 Months or Most Recently Relevant to Health Maintenance Results * POCT lipid panel (01/05/2025 8:24 AM GRAPHITE MILL OPERATOR) HDL, POC 33 mg/dL Triglycerides, POC 115 mg/dL LDL Cholesterol POC 80 mg/dL Chol/HDL Ratio, POC 2.4 Non-HDL Cholesterol, POC 103 mg/dL Cholesterol Total, POC 136 mg/dL Capillary blood 01/05/2025 8 :24 AM GRAPHITE MILL OPERATOR Nahum Haider MD POINT OF CARE TEST ORDERABLES Fi nal Result * POC Influenza A/B, COVID-19 antigen (12/30/2024 12:41 PM GRAPHITE MILL OPERATOR) Influenza A Ag, POC Negative Negative [facility] Influenza B Ag, POC Negative Negative [facility] COVID-19 Ag POC Presumptive Negative Presumptive Negative, Invalid [facility] Nasal 12/30/2024 12:4 1 PM GRAPHITE MILL OPERATOR Mary Kay Desai NP POINT OF CARE TEST ORDERABLES Final Result [facility] [address] [place] [address], [facility] * eGFR (04/26/2024 2:34 PM CDT) eGFR >90 >=60 mL/min/1. 73 m2 Comment: Interpretive Data Reference Interval Normal >/= 90 mL/min/1.73m2 Mildly decreased* 60 - 89 mL/min/1.73m2 Mildly to moderately decreased 45 - 59 mL/min/1.73m2 Moderately to severely decreased 30 - 44 mL/min/1.73m2 Severely decreased 15 - 29 mL/min/1.73m2 Kidney Failure < 15 mL/min/1.73m2 *Relative to young adult level Estimated glomerular filtration rate is determined by the 2020 CKD-EPI equation recommended by the National Kidney Foundation (A Unifying Approach to GFR Estimation: Recommendations of the NKF-ASK Task Force on Reassessing the Inclusion of Race in Diagnosing Kidney Disease, JASN 2020). The CKD-EPI equation should not be used for patients with unstable renal function and has not been validated in children and those over 70. Current interpretive data was last reviewed 2021. Blood 04/26/2024 2:34 PM CDT 04/26/2024 8:56 PM CDT Sung Doe NP LAB BLOOD ORDERABLES Final Result [facility] [address] Department [place] [address] * Hemoglobin A1c (04/26/2024 2:34 PM CDT) Hgb A1C 5.6 4.0 - 5.6 % Estimated Average Glucose 114 mg/dL [facility] Comment: The ADA recommends reporting an estimated Average Glucose (eAG) with all Hemoglobin A1c results using the equation derived from a study of 507 normal and diabetic adults. Minority populations were underrepresented and children were not included. (Diabetes Care 31:9351-4745, 2008). The eAG is not equivalent to a fasting glucose. Blood 04/26/2024 2:34 PM CDT 04/26/2024 8:55 PM CDT us Sung Doe OPERATIONAL RISK CONSULTANT LAB BLOOD ORDERABLES Final Result [facility] [address] [facility] Department [place] [address] * COLONOSCOPY (07/07/2020 10:10 AM CDT) Anatomical Region Laterality Modality Other Narrative Procedure Note Shannen Terrazas MD - 07/07/2020 10:10 AM CDT ENDOSCOPY LAB Patient Name: Derik Cabrera Procedure Date: 07/07/2020 10:10 AM Date of : 1970 Admit Type: Outpatient Age: 49 Gender: Male Attending MD: Shannen Terrazas M.D. Room: [facility] ENDOSCOPY ROOM 03 Note Status: Finalized Procedure: Colonoscopy Indications: Screening for colorectal malignant neoplasm, This isthe patient's first colonoscopy Providers: Shannen Terrazas M.D. Referring MD: Catracho Palma M.D. Medicines: Monitored Anesthesia Care Complications: No immediate complications. Estimated Blood Loss: Estimated blood loss: none. Procedure: Pre-Anesthesia Assessment: - Immediately prior to administration of medications,the patient was re-assessed for adequacy to receivesedatives. The benefits, risks and alternatives of the procedureand sedation were discussed and informed consent wasobtained. All questions were answered. Please refer to the signed informed consent document in the medical record. Thescope was passed under direct vision. The [id number] introduced through the anus and advanced to the cecum, identified by appendiceal orifice and ileocecal valve.The colonoscopy was performed without difficulty. Thepatient tolerated the procedure well. The quality of the bowel preparation was evaluated using the BBPS (Clinton Bowel Preparation Scale) with scores of: Right Colon = 3, Transverse Colon = 3 and Left Colon = 3 (entire mucosa seen well with no residual staining, small fragments of stool or opaque liquid). The total BBPS score equals 9. Bowel prep was administered using a split dose. Findings: A 8 mm polyp was found in the descending colon. The polyp was semi-sessile. The polyp was removed with a cold snare. Resection and retrieval were complete. Non-bleeding internal hemorrhoids were found during retroflexion. The hemorrhoids were medium-sized. Impression: - One 8 mm polyp in the descending colon, removed witha cold snare. Resected and retrieved. - Non-bleeding internal hemorrhoids. Recommendation: - Repeat colonoscopy in 5 years for surveillance basedon pathology results. - A polyp or polyps were removed during yourcolonoscopy today. After the pathology result of the polyp(s) is reviewed, the doctor who performed your colonoscopywill recommend follow-up colonoscopy to you based on current guidelines by gastroenterology societies: - If only small hyperplastic polyps from the rectum or sigmoid were removed, repeat the colonoscopy in 10years. - If 1 or 2 polyps less than 1 cm in size areadenomas, repeat the colonoscopy in 5 years. - If 3 or more polyps are adenomas, repeat thecolonoscopy in 3 years. - If there are 10 or more adenomas, repeat thecolonoscopy in 1 year. - If any polyp is 10 mm or greater in size, has villous histology or high grade dysplasia, repeat thecolonoscopy in 3 years. - If a polyp greater than 2 cm was removed with a piecemeal technique, repeat the colonoscopy in 6 monthsto be certain that there is no residual polyp. - Sessile serrated polyps are treated like adenomas for surveillance purposes. - . Attending Participation: I personally performed the entire procedure. Electronically signed by Shannen Trerazas MD Shannen Terrazas M.D. 07/07/2020 10:43:39 AM Number of Addenda: 0 Note Initiated On: 07/07/2020 10:10 AM us Shannen Terrazas MD ENDOSCOPY PROCEDURES Final Res ult * PSA screen (03/10/2020 7:59 AM CDT) PSA-Total 0.26 <=3.90 ng/mL [facility] Comment: Interpretive Data AGE SEX REFERENCE INTERVAL 0 minutes-150 years Female None 0 minutes-49 years Male None 50-59 years Male 0-3.90 60-69 years Male 0-5.40 70-79 years Male 0-6.20 80-150 years Male 0-6.20 Current interpretive data last revised 2018. Blood specimen (specimen) 03/10/2020 7:59 AM CDT 03/10/2020 8:12 AM CDT Catrachodeisy Palma MD LAB BLOOD ORDERABLES Final R esult [facility] Department [place] [address] from Last 3 Months or Most Recently Relevant to Health Maintenance Insurance [employer] Address: [address] [place] [address] [employer] Address: [facility] [address] [place] [address] [employer] Address: [id number] [place] [address] Advance Directives For more information, please contact: [phone] * Full Code (Latest Code Status on File) Date Activated Date Inactivated Comments 07/07/2020 9:21 AM 07/07/2020 3:33 PM * Full Code Date Activated Date Inactivated Comments 04/02/2018 5:58 PM 07/07/2020 9:19 AM * Full Code Date Activated Date Inactivated Comments 03/26/2018 6:20 PM 03/30/2018 6:26 PM Care Teams Shipping Processor Relationship Specialty Start Date End Date Catracho Palma MD PCP - General Family Medicine 04/15/18
--- OUTSIDE RECORDS SUMMARY | 2025-02-01 10:19 | XMS_ITS | Referral Summary ---
Author Organization [facility] Address [address] [place] [address] Care Team Providers Care Biology Adjunct Instructor Name Role Phone Catracho Palma MD Primary Care Provider [phone] Encounters Date Type Department Care Team Description 01/26/2025 Telephone [facility] G[facility]ology at [facility] [address] [place] [phone] Daquan Figueroa MD Scheduling Appointments 01/21/2025 Telephone [facility] G[facility]ology at [facility] [address] [place] [phone] Daquan Figueroa MD office visit 01/10/2025 Documentation [facility] Cardiology [address] [place] [address] [address] [place] [phone] Corine Newton MA 01/05/2025 8:30 AM FOOD PRODUCTION MANAGER Office Visit [facility] Cardiology [address] [facility] [address] [place] [phone] Nahum Haider MD Coronary artery disease of [place] artery of [place] heart with stable angina pectoris (Primary Dx); Hypertension associated with diabetes (HCC); SANDI on CPAP; Severe obesity (BMI 35.0-35.9 with comorbidity) (HCC) 12/30/2024 12:00 PM FOOD PRODUCTION MANAGER Office Visit [facility] [address] [place] [address] Mary Kay Desai NP Diarrhea, unspecified type (Primary Dx); Nausea from Last 3 Months Allergies No known active allergies Medications pantoprazole DR (PROTONIX) 40 mg EC tablet Take 1 tablet (40 mg total) by mouth 2 (two) times a day. 180 tablet 3 11/26/19 19 Active tamsulosin (FLOMAX) 0.4 mg extended release capsuleIndication s:benign prostatic hyperplasia with lower urinary tract sx Take 1 capsule (0.4 mg total) by mouth line repairer before breakfast 05/15/20 20 Active lisinopriL (PRINIVIL,ZESTRIL [...] 24 hr tabletIndications :Coronary artery disease of [place] artery of [place] heart with stable angina pectoris Take 1 [...] 12 hr tabletIndications :Coronary artery disease of [place] artery of [place] heart with stable angina pectoris TAKE ONE TABLET BY MOUTH TWICE A DAY 60 tablet 11 01/18/20 25 Active ranolazine ER (RANEXA) 1,000 mg 12 hr tabletIndications :Coronary artery disease of [place] artery of [place] heart with stable angina pectoris Take 1 tablet (1,000 mg total) by mouth 2 (two) times a day 180 tablet 12/22/19 24 025 Discontinued Active Problems Problem Noted Date Diagnosed Date History of percutaneous coronary intervention Overview (06/12/2022): Added automatically from request for surgery [id number] Coronary artery disease of n ative artery of [place] heart with stable angina pectoris 06/12/2022 Overview (06/12/2022): Added automatically from request for surgery [id number] Abnormal stress test 03/11/2022 Overview (03/11/2022): Added automatically from request for surgery [id number] Chest pain 03/11/2022 Overview (03/11/2022): Added automatically from request for surgery [id number] Mixed sleep apnea 10/24/2021 Refractive error 07/11/2020 [...] adult 11/27/2016 024 Overview (05/28/2023): slight improvement Social History Tobacco Use Types Packs/Day Years [...] on file Sexual Orientation Not on file Last Filed Vital Signs Vital Sign Reading Time Taken Comments Blood Pressure 106/64 01/05/2025 8:29 AM FOOD PRODUCTION MANAGER Pulse 80 01/05/2025 8:29 AM FOOD PRODUCTION MANAGER Temperature 36.7 C (98.1 F) 12/30/2024 12:09 PM FOOD PRODUCTION MANAGER Respiratory Rate 18 12/30/2024 12:09 PM FOOD PRODUCTION MANAGER Oxygen Saturation 98% 01/05/2025 8:29 AM FOOD PRODUCTION MANAGER Inhaled Oxygen Concentration - - Weight 136.1 kg (300 lb) 01/05/2025 8:29 AM FOOD PRODUCTION MANAGER Height 185.4 cm (6' 1 ) 01/05/2025 8:29 AM FOOD PRODUCTION MANAGER Body Mass Index 39.58 01/05/2025 8:29 AM FOOD PRODUCTION MANAGER Plan of Treatment Not on file Procedures Procedure Name Priority Date/Time Associated Diagnosis Comments POCT LIPID PANEL Routine 01/05/2025 8:24 AM FOOD PRODUCTION MANAGER Coronary artery disease of [place] artery of [place] heart with stable angina pectoris POC INFLUENZA A/B, COVID-19 ANTIGEN Routine 12/30/2024 12:41 PM FOOD PRODUCTION MANAGER Diarrhea, unspecified type EGFR Routine 04/26/2024 2:34 PM CDT Morbid obesity with BMI of 45.0-49.9, adult (HCC) Coronary artery disease of [place] artery of [place] heart with stable angina pectoris Gastroesophageal reflux disease, unspecified whether esophagitis present Primary hypertension Obstructive sleep apnea Hyperlipidemia, unspecified hyperlipidemia type HEMOGLOBIN A1C Routine 04/26/2024 2:34 PM CDT Morbid obesity with BMI of 45.0-49.9, adult (HCC) Coronary artery disease of [place] artery of [place] heart with stable angina pectoris Gastroesophageal reflux disease, unspecified whether esophagitis present Primary hypertension Obstructive sleep apnea Hyperlipidemia, unspecified hyperlipidemia type COLONOSCOPY 07/07/2020 10:10 AM CDT PSA SCREEN Routine 03/10/2020 7:59 AM CDT from Last 3 Months or Most Recently Relevant to Health Maintenance Results * POCT lipid panel (01/05/2025 8:24 AM FOOD PRODUCTION MANAGER) HDL, POC 33 mg/dL Triglycerides, POC 115 mg/dL LDL Cholesterol POC 80 mg/dL Chol/HDL Ratio, POC 2.4 Non-HDL Cholesterol, POC 103 mg/dL Cholesterol Total, POC 136 mg/dL Capillary blood 01/05/2025 8 :24 AM FOOD PRODUCTION MANAGER Nahum Haider MD POINT OF CARE TEST ORDERABLES Fi nal Result * POC Influenza A/B, COVID-19 antigen (12/30/2024 12:41 PM FOOD PRODUCTION MANAGER) Influenza A Ag, POC Negative Negative [facility] Influenza B Ag, POC Negative Negative [facility] COVID-19 Ag POC Presumptive Negative Presumptive Negative, Invalid [facility] Nasal 12/30/2024 12:4 1 PM FOOD PRODUCTION MANAGER Mary Kay Desai NP POINT OF CARE TEST ORDERABLES Final Result Performing Organization Address City/[facility]/ZIP Co de Phone Number [facility] [address] * eGFR (04/26/2024 2:34 PM CDT) eGFR [...] CDT 04/26/2024 8:56 PM CDT Sung Doe CORRECTIONAL OFFICER SERGEANT LAB BLOOD ORDERABLES Final Result Performing Organization Address City/[facility] Co de Phone Number [facility] [address] [place] [address] * Hemoglobin A1c (04/26/2024 2:34 PM CDT) Hgb A1C 5.6 4.0 - 5.6 % Estimated Average Glucose 114 mg/dL [facility] Comment: The ADA recommends reporting an estimated Average Glucose (eAG) with all Hemoglobin A1c results using the equation derived from a study of 507 normal and diabetic adults. Minority populations were underrepresented and children were not included. (Diabetes Care 31:7860-4323, 2008). The eAG is not equivalent to a fasting glucose. Blood 04/26/2024 2:34 PM CDT 04/26/2024 8:55 PM CDT us Sung Doe CORRECTIONAL OFFICER SERGEANT LAB BLOOD [place] [address] [facility] Department [place] [address] * COLONOSCOPY (07/07/2020 10:10 AM CDT) Anatomical Region Laterality Modality Other Narrative Procedure Note Shannen Terrazas MD - 07/07/2020 10:10 AM CDT ENDOSCOPY LAB Patient Name: Derik Cabrera Procedure Date: 07/07/2020 10:10 AM Date of : 1970 Admit Type: Outpatient Age: 49 Gender: Male Attending MD: Shannen Terrazas M.D. Room: [facility] ENDOSCOPY ROOM 03 Note Status: Finalized Procedure: [...] Thescope was passed under direct vision. The [id number] introduced through the anus and advanced to the cecum, identified by appendiceal orifice and ileocecal valve.The colonoscopy was performed without difficulty. Thepatient tolerated the procedure well. The quality of the bowel preparation was evaluated using the BBPS (Duke Bowel Preparation Scale) with scores of: Right [...] the entire procedure. Electronically signed by Shannen Terrazas MD Shannen Terrazas M.D. 07/07/2020 10:43:39 AM Number of Addenda: 0 Note Initiated On: 07/07/2020 10:10 AM us Shannen Terrazas MD ENDOSCOPY PROCEDURES Final Res ult * PSA screen (03/10/2020 7:59 AM CDT) PSA-Total 0.26 <=3.90 ng/mL [facility] Comment: Interpretive Data AGE SEX REFERENCE INTERVAL 0 minutes-150 years Female None 0 minutes-49 years Male None 50-59 years Male 0-3.90 60-69 years Male 0-5.40 70-79 years Male 0-6.20 80-150 years Male 0-6.20 Current interpretive data last revised 2018. Blood specimen (specimen) 03/10/2020 7:59 AM CDT 03/10/2020 8:12 AM CDT Catrachodeisy Palma MD LAB BLOOD ORDERABLES Final R esult [facility] [place] [address] from Last 3 Months or Most Recently Relevant to Health Maintenance Insurance [facility] [employer] Advance Directives For more information, please contact: [phone] * Full Code (Latest Code Status on File) Date Activated Date Inactivated Comments 07/07/2020 9:21 AM 07/07/2020 3:33 PM * Full Code Date Activated Date Inactivated Comments 04/02/2018 5:58 PM 07/07/2020 9:19 AM * Full Code Date Activated Date Inactivated Comments 03/26/2018 6:20 PM 03/30/2018 6:26 PM Care Teams Biology Adjunct Instructor Relationship Specialty Start Date End Date Catracho Palma MD PCP - General Family Medicine 04/15/18
== END 2025-02-01 09:19 | disposition home or self-care (01) ==
LOC: ANHIMG 09:21
PROVIDERS: PCP Family Medicine; Visit Provider Nurse Practitioner Family
DX: R13.19 Other dysphagia (principal); K21.9 Gastro-esophageal reflux disease without esophagitis
CPT/HCPCS: 92611

== ENCOUNTER 2025-02-28 08:42 | Outpatient (CLI) | payer OTHER, SELFPAY ==
--- NOTE | ~2025-02-28 | XR_ITS ---
Right Shoulder Technique: AP and axillary views were obtained. Clinical History: Pain Findings: No fracture or dislocation is seen. Osseous alignment is anatomic. The glenohumeral and acr omioclavicular joint spaces are preserved. Possible tiny focus of calcific tendinitis at the distal r otator cuff insertion versus enthesopathic change. Impression: Possible tiny focus of calcific tendinitis at the distal rotator cuff insertion versus enthesopathic change. Reviewed, dictated and finalized at location . Impression: Possible tiny focus of calcific tendinitis at the distal rotator cuff insertion versus enthesopathic change.
--- NOTE | ~2025-02-28 | XR_ITS ---
[id number] Ordering provider: Kathrin Solomon NP History: . M54.2 - Cervicalgia . Comparison: None. FINDINGS: VERTEBRAL BODIES: Normal height and alignment. No visible fracture or subluxation. The dens is intact . DISK SPACES: Narrowing of the disc C5-C6 is noted. Uncovertebral joint osteoarthritic changes seen at the same level. PARASPINOUS SOFT TISSUES: No prevertebral soft tissue swelling. Atherosclerotic changes of both carot ids. IMPRESSION: No acute osseous abnormality cervical spine. Degenerative disc disease at the level of C5-C6. Reviewed, dictated and finalized at location A.
== END 2025-02-28 08:43 | disposition home or self-care (01) ==
LOC: MICIMG 08:43
PROVIDERS: PCP Family Medicine
DX: M50.322 Other cervical disc degeneration at C5-C6 level (principal); M25.519 Pain in unspecified shoulder
CPT/HCPCS: 72040; 73030